=== PATIENT | male | born 1975 | race Caucasian/White ===

== ENCOUNTER 2020-12-14 04:55 | Emergency (ER) | payer OTHER, SELFPAY ==
[2020-12-14 05:02] VITALS: BP 95/62; PULSE 66; RESP 16; TEMP 36.7; O2SAT 95; BMI 16.0
--- NOTE | 2020-12-14 07:11 | ED.EYEPROB ---
HPI - Eye Problem General Chief complaint: Eye Problems Stated complaint: puss coming from eyes Time Seen by Provider: 12/14/20 07:09 Source: patient Mode of arrival: ambulatory Limitations: no limitations History of Present Illness chief complaint: other (redness and discharge) Onset (ago): day(s) (2) Onset description: gradual Duration: constant Location: both eyes Eye Symptoms: redness and discharge Place: home Mechanism: none Severity: mild Associated symptoms: none Treatments Prior to Arrival: none Related Data Previous Rx's Medication Instructions Recorded erythromycin 0.5 inch OPHTHALMIC (EYE) BID 7 12/14/20 Days #3.5 g Allergies Allergy/AdvReac Type Severity Reaction Status Date / Time No Known Allergies Allergy Verified 12/14/20 07:13 Review of Systems Review of Systems: Constitutional : No Fever, No Chills ENT/Mouth : No sore throat, No Rhinorrhea Eyes: No Eye Pain, No Swelling, pos Redness, pos eye drainage Cardiovascular : No Chest Pain, No SOB Gastrointestinal : No Nausea, No Vomiting Genitourinary : No Dysuria, No Urinary Frequency Musculoskeletal : No joint pain, No Myalgias Skin : No Skin Lesions, No rash Neuro : No Weakness, No Numbness, No Dizziness, No Headache PMFSH Past Medical History Attestation statement: The following information was validated with the patient. Medical History Cirrhosis Pancreatitis Ulcerative colitis Social History Social History (Updated 12/14/20 @ 07:20 by Tamie Lee DO) Patient Tobacco Use Status: Current everyday Tobacco user Advance Directives: No Advance Directives Information Provided: No Physical Exam Vital Signs: Vital Signs: Last Vital Signs Temp 98.0 F 12/14/20 05:02 Pulse 66 12/14/20 05:02 Resp 16 12/14/20 05:02 BP 95/62 12/14/20 05:02 Pulse Ox 95 12/14/20 05:02 Body Mass Index 16.0 Appearance: Alert. Oriented X3. No acute distress. Frail and underweight Eyes: Pupils equal, round and reactive to light. mild conj injection, small purulence from both eyes not copious, no vision changes ENT: Pharynx normal. Neck: Normal inspection. Neck supple. CVS: Normal heart rate and rhythm. Pulses normal. Respiratory: No respiratory distress. Breath sounds normal. Abdomen: Soft and nontender. Skin: Skin warm and dry. Normal skin color Extremities: No lower extremity edema Neuro: Oriented X 3. No motor deficit. No sensory deficit. MDM - Eye Problem MDM Narrative Medical decision making narrative: 45 yo male with hx of UC, cirrhosis, pancreatitis reports a couple of days of eye irritation and purulence from both eyes, no vision changes, no contacts, exam concerning for bacterial conjunctivitis - topical erythromycin ordered, given resources for outpatient followup Discharge Plan Discharge Clinical Impression: Bacterial conjunctivitis Patient Disposition: Home, Self-Care Instructions: Conjunctivitis (ED) Additional Instructions: return to ED for any worsening symptoms or concerns Prescriptions: New erythromycin 5 mg/gram (0.5 %) ointment 0.5 inch ophthalmic (eye) BID 7 Days Qty: 3.5 RF: 0 Referrals: Physician,Unknown [Primary Care Provider] - 2 days (if not better on Wednesday) Stand Alone Forms: Work/School Release
[2020-12-14] MEDS: Erythromycin Base 0.5% Oph Oin 1 GM TUBE 1 CM EYE-BOTH (07:28)
== END 2020-12-14 07:35 | disposition home or self-care (01) ==
PROVIDERS: Emergency Provider Emergency Medicine
DX: H10.89 Other conjunctivitis (principal)
CPT/HCPCS: 99283

== ENCOUNTER 2021-01-12 09:23 | Emergency (ER) | payer OTHER, SELFPAY ==
--- NOTE | ~2021-01-12 | XR_ITS ---
EXAMINATION: XR LUMBOSACRAL SPINE CLINICAL INFORMATION: Low back pain. COMPARISON: None TECHNIQUE: Three views of the lumbosacral spine. FINDINGS: There is normal lumbar lordosis. The vertebral heights and alignment is normal. There is loss of L5-S1 disc height. Rest of the disc heights are normal. No visible fracture, dislocation or lytic process seen. XR/XR lumbar spine 2-3V IMPRESSION: There is mild degenerative disc changes L5-S1 disc level. No visible acute fracture or dislocation seen.
[2021-01-12 09:29] VITALS: BP 129/90; BP 130/80; PULSE 66; PULSE 78; RESP 16; TEMP 36.4; O2SAT 100; O2SAT 94; BMI 15.3
--- NOTE | 2021-01-12 10:00 | ED_ITS ---
HPI - Back Pain/Injury General Chief Complaint: Back Pain/Injury Stated Complaint: back pain Time Seen by Provider: 01/12/21 09:31 Source: patient Mode of arrival: ambulatory Limitations: no limitations History of Present Illness HPI Narrative: Patient presents to ED for low back pain. Patient states last week he blew out his back while lifting a heavy object. Patient has history of disc herniations. Patient states while at methadone clinic this morning back pain got worse. Patient states no fever or chills. Patient secondary complaint inciting bite on the right forearm with slight erythema. Patient sta yesica no fever or chills. MD elicited complaint: back pain and back injury Related Data Previous Rx's Medication Instructions Recorded erythromycin 5 mg/gram (0.5 %) eye 0.5 inch OPHTHALMIC (EYE) BID 7 12/14/20 ointment Days #3.5 g acetaminophen 325 mg tablet 325 mg PO QID PRN #28 tab 01/12/21 (Tylenol) cephalexin 500 mg capsule 500 mg PO QID #28 cap 01/12/21 doxycycline hyclate 100 mg capsule 100 mg PO BID 7 Days #14 cap 01/12/21 lidocaine 4 % topical patch 1 patch TOPICAL DAILY PRN #10 ea 01/12/21 (Aspercreme (lidocaine)) Allergies Allergy/AdvReac Type Severity Reaction Status Date / Time No Known Allergies Allergy Verified 12/14/20 07:13 Review of Systems Constitutional: Constitutional: Reports as per HPI and Reports no additional constitutional complaints Eyes: Eyes: Reports as per HPI and Reports no additional eye complaints ENT: Reports system reviewed and no additional complaints, except as documented and Reports as per HPI Cardiovascular: Cardiovascular: Reports as per HPI and Reports no additional cardiovascular complaints Respiratory: Respiratory: Reports as per HPI and Reports no additional respiratory complaints Gastrointestinal: Gastrointestinal: Reports as per HPI and Reports no ad ditional gastrointestinal complaints Genitourinary: Genitourinary: Reports no additional male genitourinary complaints and Reports as per HPI Musculoskeletal: Musculoskeletal: Reports no additional musculoskeletal complaints, Reports as per HPI and Reports back pain Comments: Insect bite right arm. Integumentary/Breasts: Skin/Breast: Reports system reviewed and no additional complaints, except as docu and Reports as per HPI Neurologic: Reports system reviewed and no additional complaints, except as documented and Reports as per HPI Psychiatric: Psychiatric: Reports no additional psychiatric complaints and Reports as per HPI PMF Past Medical History Medical History Cirrhosis Pancreatitis Ulcerative colitis Social History Social History (Updated 12/14/20 @ 07:20 by Tamie Lee DO) Patient Tobacco Use Status: Current everyday Tobacco user Use of substances other than those prescribed or required for medical reasons: Yes Substance Use Type: Crack/Cocaine, Heroin and Marijuana Substance Use Frequency: Daily Advance Directives: No Advance Directives Information Provided: No Physical Exam Vital Signs: Vital Signs: Last Vital Signs Temp 97.6 F 01/12/21 09:29 Pulse 66 01/12/21 10:10 Resp 16 01/12/21 10:10 BP 115/78 01/12/21 11:03 Pulse Ox 98 01/12/21 11:03 Body Mass Index 15.3 Const: Other: Cachectic looking. THin General: cooperative and healthy appearing Orientation/consciousness: patient oriented x3 HENMT: Head: Yes normal to inspection, Yes No palpable skull fracture present, Yes normocephalic and Yes atraumatic Eyes: General: appearance normal, both eyes and all related structures Neck: Neck: Yes normal visual inspection, Yes full ROM, Yes no lymphadenopathy, Yes no meningeal signs, Yes trachea midline, Yes supple and No tender Chest: Chest palpation & inspection: normal inspection of the chest and normal palpation of entire chest wall Resp: Effort & Inspection: normal respiratory effort and able to speak in complete sentences Auscultation: clear to auscultation bilaterally Cardio: Jugular venous distension: no JVD Heart sounds: S1 normal heart sound present and S2 normal heart sound present GI: Inspection: Yes normal to inspection and No abdominal wall ecchymosis Palpation (GI): Soft to palpation, not firm, nontender, no guarding and not rigid : General: No CVA tenderness and Yes no CVA tenderness Back/Spine/Pelvis: Back: no CVA tenderness, No CVA tenderness and back tenderness (lumbar tenderness on palpation) Skin: General skin exam: no rashes or lesions noted and elasticity normal Neuro: General: patient oriented x3, gait normal, no meningeal signs and CN's II-XI intact bilaterally Cranial nerves: Yes CN's II-XII intact bilaterally Extrem: General: Yes normal to inspection and Yes full ROM Elbow/forearm/wrist images: 1. Slight area of erythema. Negative for any erythema migrans or negative for any red streaks, swelling, fluctuance, or mass. Motor/vascular/neuro exam intact. Course Course Course Narrative: Lumbar x-ray ordered. Patient states not able to take Toradol due to stomach issues. Morphine and Flexeril ordered. Reevaluation(s) Reevaluation #1: Radiologist x-ray tech informed the patient refused x-ray and states he wants a nap. Want to speak to patient patient states he will do x- rays after receiving meds. Discussed case with quality assurance coach Teofilo states safe to give patient morphine after taking methadone. Patient will not go into withdrawal. Patient states cannot take Toradol due to severe stomach ulcers. Time: 10:10 Reevaluation #2: X-ray shows L5-S1 narrowing with no fractures. Patient will be discharged with just Tylenol. Would not discharged with muscle relaxers due to patient's history of heroin abuse. Patient will be discharged with oral antibiotics for mild cellulitis due to insect bite. Time: 13:13 Discharge Plan Discharge Clinical Impression: Lumbar radiculopathy Patient Disposition: Home, Self-Care Instructions: Insect Bite or Sting (ED), Lumbar Radiculopathy (ED) Additional Instructions: X-ray negative for fractures. X-ray shows arthritis with L5-S1 narrowing. Please follow-up with your PCP. Return to the ED for any urinary/bowel incont inence severe pain, nausea, vomiting, abdominal pain, fever, chills, flank pain, or any other concerning symptoms. Due to history of drug use only safe medications Tylenol. Please follow up with PCP Prescriptions: New acetaminophen [Tylenol] 325 mg tablet 325 mg PO QID PRN (Reason: pain) Qty: 28 RF: 0 lidocaine [Aspercreme (lidocaine HCl)] 4 % adhesive patch,medicated 1 patch topical DAILY PRN (Reason: pain) Qty: 10 RF: 0 cephalexin 500 mg capsule 500 mg PO QID Qty: 28 RF: 0 doxycycline hyclate 100 mg capsule 100 mg PO BID 7 Days Qty: 14 RF: 0 No Action erythromycin 5 mg/gram (0.5 %) ointment 0.5 inch ophthalmic (eye) BID 7 Days Qty: 3.5 RF: 0 Interventions: ED Discharge Assessment Last Done: 01/12/21 13:29 Discharge Date/Time: 01/12/21 14:06 Print Language: [place]
[2021-01-12 10:10] VITALS: BP 136/87; PULSE 66; RESP 16; O2SAT 98
[2021-01-12] MEDS: Morphine Sulfate 4 MG/ML CARTRIDGE IM (10:10)
[2021-01-12] MEDS: Cyclobenzaprine HCl 10 MG TABLET PO (10:10)
[2021-01-12 11:03] VITALS: BP 115/78; O2SAT 98
== END 2021-01-12 14:06 | disposition home or self-care (01) ==
PROVIDERS: Emergency Provider Emergency Medicine
DX: M54.16 Radiculopathy, lumbar region (principal); M79.631 Pain in right forearm; F14.90 Cocaine use, unspecified, uncomplicated; F11.90 Opioid use, unspecified, uncomplicated; F12.90 Cannabis use, unspecified, uncomplicated; Z79.899 Other long term (current) drug therapy
CPT/HCPCS: 72100; 96372; 99284; J2270